=== PATIENT | male | born 1970 | race Caucasian/White ===

== ENCOUNTER 2023-07-30 08:41 | Outpatient (AMB) | payer OTHER, SELFPAY ==
--- NOTE | 2023-07-30 08:37 | AM.OFFWIN_ITS ---
Intake Vital Signs 07/30/23 08:45 Height 6 ft 1 in Weight 320 lb BMI 42.2 BP 128/78 Blood Pressure Location Rt brachial Position Sitting Pulse 68 Pulse Source Pulse Oximeter Temp 98.2 F Temp Source Oral Pulse Oximetry (%) 99 Oxygen Delivery Method Room Air Intake Visit Reasons: EP chest congestion/cough [id number] Intake Note: pt is here for c.o of chest congestion, cough Patient Tobacco Use Status: Never used Tobacco Allergies No Known Allergies Allergy (Verified 07/30/23 08:46) Do you need a note to return to daycare/school/sports/work: Yes HPI HPI Comments History of Present Illness Details Presents for concern bronchitits +chills but this resolved No documented fever No body ches +few weeks + cough with phlegm + congestion Difficulty getting mucus up Mucinex and OTC medicine without relief PFSH Social History Patient Tobacco Use Status: Never used Tobacco Review of Systems Const Reports chills, Reports fatigue, Denies fever(s) and Denies headache(s) ENT Denies dizziness, Denies otalgia, Denies headache(s), Reports nasal congestion, Denies sore throat and Denies throat swelling Card Denies chest pain and Denies dyspnea Resp Reports chest congestion, Reports cough and Denies dyspnea Musc Denies myalgias Neuro Denies dizziness and Denies headache(s) Endo Reports fatigue Aller/Immun Denies throat swelling Physical Exam Vital Signs: Last Vital Signs Temp 98.2 F 07/30/23 08:45 Pulse 68 07/30/23 08:45 BP 128/78 07/30/23 08:45 Pulse Ox 99 07/30/23 08:45 Oxygen Delivery Method Room Air 07/30/23 08:45 BMI result Body Mass Index 42.2 General: Non-toxic, NAD. Speaking full sentences. Skin: Warm dry throughout Eye: EOMI HENT: No sinus tenderness to palpation. Airway patent. Uvula midline. No pharyngeal erythema or edema. 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 Bilateral canals clear. TM non-erythematous, non-bulging. No TM perforation or hemotympanum noted. Lymph: No lymphadenopathy Respiratory: Slight rhonchi. No wheeze or rales Cardiac: RRR. No murmur MSK: Full ROM extremities. Neurology: A/O.No aphasia or facial droop. Gait without abnormality Psych: Good mood and affect Assessment & Plan Assessment & Plan (1) Bronchitis: Code(s): J40 - Bronchitis, not specified as acute or chronic Plan: Patient seen and evaluated. No sinusitis on exam S/S not consistent with covid or flu Azithromycin to pharmacy Patient gave verbal understanding and had no additional questions or concerns at time of discharge All questions answered Medications: New azithromycin start on day 2 of therapy 250 mg PO DAILY 6 days 6 tabs 0RF Coding Level of Care Code Est Pt Level 3 (59876) Diagnoses Bronchitis J40
[2023-07-30 08:45] VITALS: BP 128/78; PULSE 68; TEMP 36.8; O2SAT 99; BMI 42.2
== END 2023-07-30 09:04 | disposition home or self-care (01) ==
PROVIDERS: Visit Provider Physician Assistant
DX: J40 Bronchitis, not specified as acute or chronic (principal)
CPT/HCPCS: 99213